=== PATIENT | female | born 1970 | race Caucasian/White ===

== ENCOUNTER → 2018-08-20 13:08 | Outpatient (CLI) | payer MEDICARE, SELFPAY ==
[2018-08-01 14:55] VITALS: BMI 29.4
--- NOTE | 2018-08-20 13:10 | STE_ITS ---
Reason For Study: ATRIAL FIB/FLUTTER Stress Results Protocol: Dobutamine Maximum Predicted HR: 174 bpm Target HR: 148 bpm % Maximum Predicted HR: 85 % DurationHeart Rate Stage (mm:ss) (bpm) BP Dose BASELINE 80 134/88 STAGE 1 3:37 86 135/7410.00 STAGE 2 3:00 133 141/8320.00 STAGE 3 3:07 144 148/8630.00 STAGE 4 1:19 148 / 40.00 RECOVERY 99 136/75 Stress Duration: 11:03 mm:ss Maximum Stress HR: 148 bpm Baseline Echocardiogram Findings The estimated ejection fraction is 65 %. Stress Echo Wall motion Data Resting WM Intermediate WM Stress WM Resting Wall Motion Wall Motion Stress No regional wall motion No regional wall motion abnormalities noted. abnormalities noted. EKG Data Normal intervals are noted. The patient was titrated from 10 mcg to a maximum of 40 mcg of dobutamine during the stress. The maximum heart rate attained was 150 beats per minute. This was 86% of maximum predicted heart rate. During dobutamine infusion, there were no ST or T wave changes noted to suggest ischemia. No clinical angina was noted. Interpretation Summary The estimated ejection fraction is 65 %. Normal, adequate, dobutamine echocardiogram. Negative for ischemia by EKG and echocardiographic anterior. No anginal symptoms noted. Appropriate blood pressure response to dobutamine. Rare PVCs noted. Final LVEF is 75%. Test terminated due to the attainment of target heart rate. No complications. Ordering Physician: Primitivo Alcantar MD Referring Physician: Primitivo Alcantar Performed By: John Paul Lofton RCS
== END ==
PROVIDERS: Family Provider Nurse Practitioner Family; PCP Nurse Practitioner Family; Referring Provider Internal Medicine Cardiovascular Disease; Visit Provider Internal Medicine Cardiovascular Disease
DX: I48.0 Paroxysmal atrial fibrillation (principal); Q21.1 Atrial septal defect; I34.0 Nonrheumatic mitral (valve) insufficiency; I34.1 Nonrheumatic mitral (valve) prolapse
CPT/HCPCS: 93017; 93350; J7040; A4216

== ENCOUNTER → 2019-03-18 14:43 | Outpatient (CLI) | payer MEDICARE, SELFPAY ==
[2019-02-19 15:23] VITALS: BMI 28.9
--- NOTE | 2019-03-18 14:45 | ECHOD_ITS ---
Reason For Study: PFO/ASD Procedure This was a 2D Doppler, Color Flow transthoracic echocardiogram. Contrast injection was performed. Exam performed in department. Left Ventricle Normal size and thickness. The estimated ejection fraction is 65 %. Stage 1 diastolic dysfunction. No regional wall motion abnormalities noted. Right Ventricle Normal size and thickness. Normal systolic function. Atria Normal left atrium. Normal right atrium. Normal atrial septum. Bubble contrast study negative for right to left interatrial shunt. Mitral Valve The mitral valve is structurally normal. No prolapse or stenosis seen. Trivial mitral valve insufficiency. Tricuspid Valve Normal tricuspid valve. Trivial tricuspid valve insufficiency. Right ventricular systolic pressure estimated to be 23 mmHg. Aortic Valve Normal aortic valve. Trisinus/trileaflet aortic valve. Pulmonic Valve Normal pulmonic valve. Great Vessels Normal aortic root. Normal arch. Normal inferior vena cava. Inferior vena cava collapse with sniff. Pericardium/Pleural No pericardial effusion. Medication 22 gauge I.V. with prn adaptor inserted into right arm. Performed a rapid injection of agitated mix of 9 cc saline and 1cc air to assess for atrial septal defect. MMode/2D Measurements & Calculations LVIDd: 3.9 cm IVSd: 1.2 cm LA dimension: 3.1 cm LVIDs: 2.5 cm LVPWd: 1.0 cm RVDd: 3.0 cm FS: 36.1 % LAV(MOD-bp): 36.3 ml LA A4 area: 15.4 cm2 RA A4 area: 12.9 cm2 LAV(MOD-bp) Indexed: 21.5 ml/m2 LAV(MOD-sp2): 33.9 ml LAV(MOD-sp4): 37.8 ml Time Measurements MV dec time: 0.21 sec Doppler Measurements & Calculations MV E max oneil: 80.0 cm/sec Lat Peak E' Oneil: 10.3 cm/sec Med Peak E' Oneil: 9.4 cm/sec MV A max oneil: 92.0 cm/sec E/E' lat: 7.8 E/E' med: 8.5 MV E/A: 0.87 MV V2 max: 105.0 cm/sec MV P1/2t max oneil: 88.6 cm/sec Ao V2 max: 121.5 cm/sec MV max P.4 mmHg MV P1/2t: 108.1 msec Ao max P.9 mmHg MV V2 mean: 51.8 cm/sec MV dec slope: 240.0 cm/sec2 Ao V2 mean: 74.8 cm/sec MV mean P.3 mmHg Ao mean P.7 mmHg MV V2 VTI: 33.6 cm MVA(P1/2t): 2.0 cm2 Ao V2 VTI: 24.7 cm LV V1 max: 99.0 cm/sec MR max oneil: 550.0 cm/sec PA V2 max: 75.1 cm/sec LV V1 max P.9 mmHg MR max P.0 mmHg LV V1 mean P.7 mmHg LV V1 mean: 58.9 cm/sec LV V1 VTI: 21.5 cm TR max oneil: 212.7 cm/sec TR max P.1 mmHg Interpretation Summary The estimated ejection fraction is 65 %. Stage 1 diastolic dysfunction. Trivial mitral valve insufficiency. Trivial tricuspid valve insufficiency. Right ventricular systolic pressure estimated to be 23 mmHg. Bubble contrast study negative for right to left interatrial shunt. Compared to echo report dated 06/29/2015, no appreciabel changes noted. Ordering Physician: Primitivo Alcantar Referring Physician: Aliyah Howe Performed By: John Paul Lofton RCS
== END ==
PROVIDERS: Family Provider Nurse Practitioner Family; PCP Nurse Practitioner Family; Referring Provider Internal Medicine Cardiovascular Disease; Visit Provider Internal Medicine Cardiovascular Disease
DX: I48.0 Paroxysmal atrial fibrillation (principal)
CPT/HCPCS: 93306; A4216

== ENCOUNTER → 2024-08-24 | Outpatient (CLI) | payer MEDICARE, SELFPAY | END | disposition home or self-care (01) | PROVIDERS: PCP Nurse Practitioner Family; Referring Provider Psychiatry & Neurology Neurology; Visit Provider Psychiatry & Neurology Neurology | DX: G40.909 Epilepsy, unspecified, not intractable, without status epilepticus (principal) | CPT/HCPCS: 95819 ==